=== PATIENT | male | born 1985 | race Caucasian/White ===

== ENCOUNTER 2017-08-08 18:19 | Emergency (ER) | payer BC ==
[~2017-08-08] VITALS: Ht 175.3 cm; Wt 88.5 kg
[2017-08-08 18:30] VITALS: BP_SYST 141
[2017-08-08] MEDS ORDERED: IBUPROFEN 600 MG TABLET PO ONE (19:00)
== END 2017-08-08 19:55 | disposition home or self-care (01) ==
LOC: SED 18:19
DX: S86.811A Strain of other muscle(s) and tendon(s) at lower leg level, right leg, initial encounter (principal); W50.0XXA Accidental hit or strike by another person, initial encounter; Y93.66 Activity, soccer; Y92.322 Soccer field as the place of occurrence of the external cause; Y99.8 Other external cause status
CPT/HCPCS: 73564; 99284

== ENCOUNTER 2021-11-29 21:50 | Emergency (ER) | payer BC ==
[~2021-11-29] VITALS: Ht 175.3 cm; Wt 89.4 kg
[2021-11-29 21:56] VITALS: BP_SYST 143
[2021-11-29] MEDS ORDERED: DIPHTH,PERTUSS(ACELL),TET VAC 0.5 ML VIAL (Tdap) I.M. ONE (22:45)
[2021-11-29] MEDS ORDERED: CIPROFLOXACIN HCL 500 MG TABLET PO ONE (22:45)
[2021-11-29] MEDS ORDERED: CIPR500T5 PO (22:52)
== END 2021-11-29 22:58 | disposition home or self-care (01) ==
LOC: SED 21:50
DX: S91.332A Puncture wound without foreign body, left foot, initial encounter (principal); Z79.899 Other long term (current) drug therapy; W45.0XXA Nail entering through skin, initial encounter; Y93.89 Activity, other specified; Y92.89 Other specified places as the place of occurrence of the external cause; Y99.8 Other external cause status
CPT/HCPCS: 90715; 99283